=== PATIENT | female | born 1990 | race Caucasian/White ===

== ENCOUNTER 2020-04-09 18:48 | Emergency (ER) | payer OTHER ==
[~2020-04-09 18:48] MED LIST: AUGMENTIN 875-1 EACH PO; BENTYL 20MG TAB20 MG PO; CYCLOBENZAPRINE10 MG PO; ELIQUIS2.5 MG PO; IBUPROFEN600 MG PO; IBUPROFEN800 MG PO; K-DUR TAB 10 M10 MEQ PO; SYNTHROID25 MCG PO; TORADOL 10 MG T10 MG PO; ZITHROMAX250 MG PO; ZOFRAN4 MG PO
== END 2020-04-09 23:31 | disposition home or self-care (01) ==
LOC: ER1 18:48
DX: R10.10 Upper abdominal pain, unspecified (principal); Z53.21 Procedure and treatment not carried out due to patient leaving prior to being seen by health care provider

== ENCOUNTER → 2020-08-21 | Outpatient (CLI) | payer OTHER | LOC: KOH-I 13:02 | DX: M54.9 Dorsalgia, unspecified (principal); R07.9 Chest pain, unspecified; M54.5 Low back pain; M51.34 Other intervertebral disc degeneration, thoracic region; M51.37 Other intervertebral disc degeneration, lumbosacral region | CPT/HCPCS: 71046; 72050; 72070; 72110 ==

== ENCOUNTER 2020-12-16 09:24 | Emergency (ER) | payer OTHER | END 2020-12-16 11:36 | disposition home or self-care (01) | LOC: ER1 09:24 | DX: R51.9 Headache, unspecified (principal); M54.2 Cervicalgia; Z88.8 Allergy status to other drugs, medicaments and biological substances; W22.8XXA Striking against or struck by other objects, initial encounter; Y92.009 Unspecified place in unspecified non-institutional (private) residence as the place of occurrence of the external cause | CPT/HCPCS: 70150; 96372; 99283; J1885 ==

== ENCOUNTER 2021-08-06 14:12 | Emergency (ER) | payer OTHER ==
[2021-08-06 15:46] LABS: HEMOGLOBIN 12.1 gm/dl (12.3-15.3); RED BLOOD COUNT 3.93 M/UL (4.00-5.10); WHITE BLOOD COUNT 8.9 K/UL (4.5-11.0)
[2021-08-06 16:13] LABS: BUN/CREATININE RATIO 17 (0-10)
[2021-08-06] MEDS ORDERED: IBUPROFEN600 MG PO (21:44)
[2021-08-06] MEDS ORDERED: COLCHICINE 0.60.6 MG PO (21:44)
== END 2021-08-06 22:35 | disposition home or self-care (01) ==
LOC: ER1 14:12
PROVIDERS: Physician Assistant
DX: I31.9 Disease of pericardium, unspecified (principal); Z88.5 Allergy status to narcotic agent
CPT/HCPCS: 71045; 80053; 82550; 82553; 84484; 85025; 85379; 85610; 85730; 93005; 96372; 99285; J1885; Q9967

== ENCOUNTER → 2021-09-01 | Outpatient (CLI) | payer OTHER ==
[~2021-09-01] MED LIST changes: +COLCHICINE 0.60.6 MG PO
[2021-09-01 13:15] LABS: HEMOGLOBIN 13.3 gm/dl (12.3-15.3); RED BLOOD COUNT 4.27 M/UL (4.00-5.10); WHITE BLOOD COUNT 6.4 K/UL (4.5-11.0)
[2021-09-02 07:38] LABS: BUN/CREATININE RATIO 17 (0-10)
[2021-09-03 08:14] LABS: HEMOGLOBIN A1C 5.4 % (4.8-5.6)
[2021-09-03 10:14] LABS: CHOLESTEROL, TOTAL 262 mg/dL (100-199); HDL CHOLESTEROL 38 mg/dL (>39); LDL CHOLESTEROL CALC 189 mg/dL (0-99); T. CHOL/HDL RATIO 6.9 ratio (0.0-4.4); TRIGLYCERIDES 185 mg/dL (0-149)
[2021-09-03 13:09] LABS: FOLATE (FOLIC ACID), SERUM 9.6 ng/mL (>3.0)
[2021-09-04 01:12] LABS: ALT (SGPT) P5P 46 IU/L (0-40); APOLIPOPROTEIN A-1 122 mg/dL (116-209); AST (SGOT) P5P 42 IU/L (0-40); BILIRUBIN, TOTAL 0.4 mg/dL (0.0-1.2); CHOLESTEROL, TOTAL 262 mg/dL (100-199); FIBROSIS SCORE 0.12 (0.00-0.21); GGT 16 IU/L (0-60); GLUCOSE, SERUM 88 mg/dL (65-99); HAPTOGLOBIN 142 mg/dL (33-278); HEIGHT: 60 in (.); TRIGLYCERIDES 193 mg/dL (0-149); WEIGHT: 245 LBS (.)
== END ==
LOC: LAB 12:48
PROVIDERS: Internal Medicine
DX: K76.0 Fatty (change of) liver, not elsewhere classified (principal); D51.8 Other vitamin B12 deficiency anemias; E78.5 Hyperlipidemia, unspecified; E03.9 Hypothyroidism, unspecified
CPT/HCPCS: 36415; 80053; 80061; 82172; 82247; 82465; 82607; 82746; 82947; 82977; 83010; 83036; 83883; 84439; 84443; 84450; 84460; 84478; 85025